=== PATIENT | male | born 1990 | race Caucasian/White ===

== ENCOUNTER 2024-04-10 08:40 | Emergency (ER) | payer OTHER ==
[2024-04-10 08:46] VITALS: BMI 19.0
[2024-04-10] MEDS ORDERED: ONDANSETRON 4 MG/2 ML VIAL ONE (09:00)
[2024-04-10 09:15] LABS: BASO % 0.6 % (0-2.0); EOS % 1.2 % (0-4.5); HEMATOCRIT 43.1 % (35.4-49); HEMOGLOBIN 14.3 GM/dL (11.7-16.9); LYMPH % 21.6 % (8-40); MCH 28.9 pg (25.7-33.7); MCHC 33.2 g/dl (32.0-35.9); MEAN PLT VOLUME 8.2 fl (7.5-11.1); MONO % 7.8 % (3.8-10.2); NEUT % 68.8 % (42.8-82.8); PLATELET COUNT 337 10^3/uL (134-434); RBC 4.95 M/mm3 (4.00-5.60); RDW 14.5 % (11.9-15.9); WHITE BLOOD COUNT 7.2 K/mm3 (4.0-10.0)
[2024-04-10] MEDS: LACTATED RINGERS SOLUTION 1000 ML INFUS.BAG IV ONE (09:22)
[2024-04-10] MEDS: ONDANSETRON 4 MG/2 ML VIAL IVPUSH ONE (09:22)
[2024-04-10 09:27] LABS: INR 1.05 (0.83-1.09); PROTHROMBIN TIME (PATIENT) 11.8 SEC (9.7-13.0)
[2024-04-10 09:40] LABS: ALBUMIN 3.8 g/dl (3.4-5.0); BLOOD UREA NITROGEN 19.2 mg/dL (7-18)
[2024-04-10 09:42] LABS: CREATININE 0.9 mg/dL (0.55-1.3)
[2024-04-10 09:45] LABS: BILIRUBIN,TOTAL 0.6 mg/dL (0.2-1); TOT PROT 7.6 g/dl (6.4-8.2)
[2024-04-10] MEDS ORDERED: KETOROLAC TROMETHAMINE 15 MG/ML VIAL ONE (10:06)
[2024-04-10] MEDS: KETOROLAC TROMETHAMINE 15 MG/ML VIAL IVPUSH ONE (10:13)
[2024-04-10 11:13] VITALS: BP 122/70; PULSE 77; RESP 16; TEMP 98.5
== END 2024-04-10 11:14 | disposition home or self-care (01) ==
LOC: JER 08:40
PROC: 3E0303Z Introduction of Anti-inflammatory into Peripheral Vein, Open Approach (ICD-10-PCS; principal; 2024-04-10)
PROC: 3E030GC Introduction of Other Therapeutic Substance into Peripheral Vein, Open Approach (ICD-10-PCS; 2024-04-10)
DX: R20.0 Anesthesia of skin (principal); R11.10 Vomiting, unspecified; R20.2 Paresthesia of skin; R00.0 Tachycardia, unspecified
CPT/HCPCS: 36415; 71046-TC-FY; 80053; 83735; 84484; 85025; 85610; 93005; 93010; 99285-25